=== PATIENT | female | born 1970 | race Caucasian/White ===

== ENCOUNTER 2017-03-05 18:24 | Emergency (ER) | payer OTHER | END 2017-03-05 19:44 | disposition left against medical advice (07) | LOC: ER 18:24 → LAB 18:24 → ER 18:40 → EDSTATUS 18:40 → ER 19:44 | DX: Z53.21 Procedure and treatment not carried out due to patient leaving prior to being seen by health care provider (principal); M79.1 Myalgia; R50.9 Fever, unspecified ==

== ENCOUNTER → 2018-11-10 | Outpatient (CLI) | payer OTHER | END | disposition home or self-care (01) | LOC: LAB EV 10:40 → LAB SHORT 10:40 | DX: N39.0 Urinary tract infection, site not specified (principal) | CPT/HCPCS: 87077; 87086; 87186 ==

== ENCOUNTER → 2019-03-06 | Outpatient (CLI) | payer OTHER ==
[2019-03-07 11:20] LABS: Candida species (DNA Probe) Negative (NEGATIVE); G. vaginalis (DNA Probe) Negative (NEGATIVE); T. vaginalis (DNA Probe) Negative (NEGATIVE)
== END ==
LOC: LAB SHORT 16:45 → LAB 16:45
PROVIDERS: Family Medicine
DX: N89.8 Other specified noninflammatory disorders of vagina (principal)
CPT/HCPCS: 87480; 87510; 87660

== ENCOUNTER 2022-12-06 06:58 | Inpatient (IN) | payer OTHER, BC ==
[2022-12-04 11:16] LABS: BASOPHILS ABSOLUTE AUTO 0.15 K/mm3 (0.00-0.23); BASOPHILS PERCENT AUTO 2 % (0-2); EOSINOPHILS ABSOLUTE AUTO 0.14 K/mm3 (0.00-0.68); EOSINOPHILS PERCENT AUTO 2 % (0-6); Hematocrit 43.6 % (33.0-51.0); Hemoglobin 14.7 g/dL (11.5-16.0); IMMATURE GRAN ABSOLUTE AUTO 0.02 K/mm3 (0.00-0.10); IMMATURE GRAN PERCENT AUTO 0 % (0-1); LYMPHOCYTES ABSOLUTE AUTO 1.32 K/mm3 (0.84-5.20); LYMPHOCYTES PERCENT AUTO 16 % (21-46); MONOCYTES ABSOLUTE AUTO 0.73 K/mm3 (0.16-1.47); MONOCYTES PERCENT AUTO 9 % (4-13); Mean Corpuscular HGB 30.6 pg (26.0-34.0); Mean Corpuscular HGB Conc 33.7 g/dL (31.5-36.5); Mean Corpuscular Volume 91 fL (80-100); Mean Platelet Volume 8.7 fL (9.1-12.4); NEUTROPHILS PERCENT AUTO 72 % (41-73); Platelet Count 334 K/mm3 (150-400); RDW Coefficient Variation 14.4 % (11.7-14.2); RDW Standard Deviation 48.2 fL (35.1-46.3); Red Blood Cell Count 4.81 M/mm3 (3.80-5.20); White Blood Cell Count 8.36 K/mm3 (4.00-11.30)
[2022-12-06] VITALS (21 sets, daily range): BP systolic 54–163; BP diastolic 42–73
[~2022-12-06] VITALS: Ht 154.9 cm; Wt 91.7 kg
[~2022-12-06 06:58] MED LIST: ALBU90OI INH; FLUT1DIS5 INH; Loratadine10 MG; NASONEX17 G1; SYNTHROID137 MCG PO
[2022-12-06] MEDS ORDERED: TRELEGY ELLIPT1 EAC1 INH (07:50)
[2022-12-06] MEDS ORDERED: VENL75ER PO (08:14)
[2022-12-06] MEDS ORDERED: Norethindrone Ac5 MG PO (08:15)
--- NOTE | 2022-12-06 09:00 | NUR ---
History, Chart, Medications and Allergies reviewed before start of procedure. Ambulatory in Day Surgery. Pre-Op teaching done. Pt verbalizes understanding. Patient confirms NPO status and agrees with scheduled surgery. Patient reports completing Chlorhexadine shower X2 prior to admission to hospital. Surgical site prepped with 2% Chlorhexidine cloth wipe. Lungs clear T/O to Auscultation. Patient States Post-Procedure ride home has been arranged.
[2022-12-06 14:27] LABS: Hematocrit 33.5 % (33.0-51.0); Hemoglobin 11.3 g/dL (11.5-16.0)
[2022-12-06 18:02] LABS: Hematocrit 33.5 % (33.0-51.0); Hemoglobin 11.4 g/dL (11.5-16.0); Mean Corpuscular HGB 31.5 pg (26.0-34.0); Mean Corpuscular Volume 93 fL (80-100); Mean Platelet Volume 8.5 fL (9.1-12.4); Platelet Count 277 K/mm3 (150-400); RDW Coefficient Variation 14.5 % (11.7-14.2); Red Blood Cell Count 3.62 M/mm3 (3.80-5.20)
[2022-12-06 18:37] LABS: BAND PERCENT MAN 2 % (0-8); BASOPHILS PERCENT MAN 0 % (0-2); EOSINOPHILS PERCENT MAN 0 % (0-6); LYMPHOCYTES % ATYPICAL MANUAL 1 % (0-0); LYMPHOCYTES ABSOLUTE MAN 1.15 K/mm3 (0.84-5.20); LYMPHOCYTES PERCENT MAN 4 % (21-46); MONOCYTES ABSOLUTE MAN 0.92 K/mm3 (0.16-1.47); MONOCYTES PERCENT MAN 4 % (4-13); NEUTROPHILS ABSOLUTE MAN 21.02 K/mm3 (1.96-9.15); SEG NEUTROPHILS PERCENT MAN 89 % (41-73); TOTAL CELLS COUNTED 100
--- NOTE | 2022-12-06 19:26 | NUR ---
SHIFT SUMMARY POD0 ROBOTIC TOTAL LAP TO OPEN HYSTERECTOMY, A/OX4, VSS, TOLERATING PO, PAIN WELL MANAGED, ABDOMINAL INCISIONS C/D/I WITH SURGICAL GLUE, SCANT DRAINAGE ON JANUSZ PAD. NO ACUTE EVENTS THIS SHIFT, CALL LIGHT IN REACH.
[2022-12-07 00:33] VITALS: BP 124/48
[2022-12-07 04:16] VITALS: BP 133/45
[2022-12-07 05:14] LABS: BASOPHILS ABSOLUTE AUTO 0.06 K/mm3 (0.00-0.23); BASOPHILS PERCENT AUTO 0 % (0-2); EOSINOPHILS ABSOLUTE AUTO 0.02 K/mm3 (0.00-0.68); EOSINOPHILS PERCENT AUTO 0 % (0-6); Hematocrit 28.7 % (33.0-51.0); Hemoglobin 9.8 g/dL (11.5-16.0); IMMATURE GRAN ABSOLUTE AUTO 0.07 K/mm3 (0.00-0.10); IMMATURE GRAN PERCENT AUTO 0 % (0-1); LYMPHOCYTES ABSOLUTE AUTO 1.57 K/mm3 (0.84-5.20); LYMPHOCYTES PERCENT AUTO 9 % (21-46); MONOCYTES ABSOLUTE AUTO 1.53 K/mm3 (0.16-1.47); MONOCYTES PERCENT AUTO 9 % (4-13); Mean Corpuscular HGB 31.7 pg (26.0-34.0); Mean Corpuscular HGB Conc 34.1 g/dL (31.5-36.5); Mean Corpuscular Volume 93 fL (80-100); Mean Platelet Volume 8.9 fL (9.1-12.4); NEUTROPHILS ABSOLUTE AUTO 13.37 K/mm3 (1.96-9.15); NEUTROPHILS PERCENT AUTO 81 % (41-73); Platelet Count 262 K/mm3 (150-400); RDW Coefficient Variation 14.6 % (11.7-14.2); RDW Standard Deviation 49.4 fL (35.1-46.3); Red Blood Cell Count 3.09 M/mm3 (3.80-5.20); White Blood Cell Count 16.62 K/mm3 (4.00-11.30)
--- NOTE | 2022-12-07 05:55 | NUR ---
SHIFT SUMMARY POD 1 ROBOTIC LAP HYSTER CONVERTED TO OPEN BSO, 3 LAP SITES PLUS MIDLINE INCISION C/D/I W/ TISSUE ADHESIVE GLUE. SCANT/ SMALL AMT BRIGHT RED BLOOD TO LOWER AREA OF ABD/ INCISION. JANUSZ PAD PLACED FOR ASSESSMENT. PT A&OX4, PLEASANT, INDEP TO BATHROOM, ABD BINDER AND SCD'S IN PLACE. PT MEDICATED 1X THIS SHIFT W/ 10MG PERC FOR 5/10 PAIN. TOLERATED WELL. PT VOIDING WELL. PT REPORTS NUMBNESS TO R FINGERS THAT HAS INCREASED FROM BASELINE, BUT TOLERABLE. NO ACUTE CHANGES THIS SHIFT. CALL LIGHT W/IN REACH. IN ROOM W/ PT.
[2022-12-07 07:19] VITALS: BP 120/50
[2022-12-07 14:39] VITALS: BP 123/61
[2022-12-07 19:23] VITALS: BP 123/55
--- NOTE | 2022-12-07 20:14 | NUR ---
SHIFT SUMMARY POD1 ROBOTIC LAP TO OPEN HYSTERECTOMY, A/OX4, VSS, TOLERATING PO, PAIN WELL MANAGED, INDEPENDENT IN HER ROOM, VOIDING WELL, PASSING FLATUS. PT DENIES ANY EXTRA NEEDS, WAS HOPING TO GO HOME TODAY BUT WAS AGREEABLE TO ONE MORE NIGHT TO MONITOR LABS R/T BLOOD LOSS IN OR. NO ACUTE EVENTS THIS SHIFT, CALL LIGHT IN REACH
[2022-12-08 04:53] VITALS: BP 129/53
--- NOTE | 2022-12-08 05:33 | NUR ---
SHIFT SUMMARY PT PAIN HAS BEEN MANAGED WELL. INCISION AMD LAP SITES ARE C/D/I. PT HAD NO EPISODES OF N/V. PT HAS BEEN ABLE TO SLEEP DURING SHIFT. NO OTHER ISSUES NOTED. CALL LIGHT IN REACH.
[2022-12-08 07:12] VITALS: BP 135/62
[2022-12-08] MEDS ORDERED: Percocet 5-3251 EACH PO (13:44)
[2022-12-08] MEDS ORDERED: ONDA4 PO (13:44)
[2022-12-08] MEDS ORDERED: SIME80CH PO (13:45)
--- NOTE | 2022-12-08 14:07 | NUR ---
PT DISCHARGED AT 1400. ALL PAPERWORK REVIEWED WITH INSTRUCTIONS PER DR MURILLO. EDUCATIONAL MATERIAL SENT WITH PT. NO DISTRESS NOTED AND ABD PAIN TREATED PER EMAR PRIOR TO DISCHARGE. PT ESCORTED OUT VIA WHEEL CHAIR. TO TRANSPORT HOME.
== END 2022-12-08 14:05 | disposition home or self-care (01) | DRG 743 ==
LOC: ORSCMMR 06:58 → ORD 08:00 → ORSCMMR 08:00 → SURS 14:04
PROVIDERS: ADMIT Obstetrics & Gynecology
PROC: 0UT94ZZ Resection of Uterus, Percutaneous Endoscopic Approach (ICD-10-PCS; principal; 2022-12-08)
PROC: 0UB74ZZ Excision of Bilateral Fallopian Tubes, Percutaneous Endoscopic Approach (ICD-10-PCS; 2022-12-08)
PROC: 8E0W4CZ Robotic Assisted Procedure of Trunk Region, Percutaneous Endoscopic Approach (ICD-10-PCS; 2022-12-08)
DX: D25.0 Submucous leiomyoma of uterus (principal); N95.0 Postmenopausal bleeding; E66.9 Obesity, unspecified; F10.90 Alcohol use, unspecified, uncomplicated; J45.909 Unspecified asthma, uncomplicated; E03.9 Hypothyroidism, unspecified; F41.9 Anxiety disorder, unspecified; Z86.16 Personal history of COVID-19; Z98.890 Other specified postprocedural states; Z98.51 Tubal ligation status; Z79.82 Long term (current) use of aspirin; Z79.899 Other long term (current) drug therapy; Z88.8 Allergy status to other drugs, medicaments and biological substances; Z68.37 Body mass index [BMI] 37.0-37.9, adult; Z88.2 Allergy status to sulfonamides
CPT/HCPCS: 36415; 74018; 84702; 85014; 85018; 85025; 86850; 86900; 86901; 86923; 88307; 94640; 94664; 94760; A9270; J0690; J1100; J1650; J1885; J2250; J2371; J2405; J2704; J3010; J7120

== ENCOUNTER 2024-06-25 02:28 | Day surgery (SDC) | payer OTHER, BC ==
[~2024-06-25 02:28] MED LIST changes: +Norethindrone Ac5 MG PO; +ONDA4 PO; +Percocet 5-3251 EACH PO; +SIME80CH PO; +TRELEGY ELLIPT1 EAC1 INH; +VENL75ER PO
[2024-06-25] MEDS ORDERED: Cosyntropin 0.25 MG / ML 1ML Vial IM SCH (07:00)
[2024-06-25 08:40] VITALS: BP 142/64
[2024-06-25] MEDS ORDERED: FENO48 PO (09:01)
== END 2024-06-25 10:02 | disposition home or self-care (01) ==
LOC: ATC 02:28
DX: R79.89 Other specified abnormal findings of blood chemistry (principal); G47.33 Obstructive sleep apnea (adult) (pediatric); E89.0 Postprocedural hypothyroidism; N95.1 Menopausal and female climacteric states; J45.909 Unspecified asthma, uncomplicated; Z88.2 Allergy status to sulfonamides; Z88.8 Allergy status to other drugs, medicaments and biological substances; Z79.899 Other long term (current) drug therapy
CPT/HCPCS: 36415; 80400; 82533; 96372; J0834